=== PATIENT | male | born 1955 | race Caucasian/White ===

== ENCOUNTER → 2017-05-01 | Outpatient (CLI) | payer OTHER, BC ==
[2016-07-25 06:10] VITALS: BP 148/88
[~2017-05-01] MED LIST: ASPIRIN E.C. 8181 MG PO; CIPRO250 M1 PO; CRESTOR20 MG PO; FISH OIL 1,0001 EAC1 PO; FLOMAX 0.40.4 MG/CAP PO; LOPRESSOR 550 MG/TAB PO; PERCOCET 325 MG1 TA2 PO; PHENERGAN 25 TA25 MG PO; ZOFRAN ODT8 M1 PO
== END ==
LOC: RAD 04-28 13:00
DX: I65.23 Occlusion and stenosis of bilateral carotid arteries (principal)

== ENCOUNTER 2018-07-30 08:30 | Outpatient (RCR) | payer OTHER, BC ==
[2016-07-25 06:10] VITALS: BP 148/88
== END 2018-08-19 | disposition home or self-care (01) ==
LOC: PT
DX: M25.561 Pain in right knee (principal); G89.29 Other chronic pain

== ENCOUNTER → 2019-09-08 | Outpatient (CLI) | payer OTHER, BC ==
[2016-07-25 06:10] VITALS: BP 148/88
== END ==
LOC: RAD 15:27
DX: R06.02 Shortness of breath (principal)

== ENCOUNTER 2019-11-18 08:30 | Outpatient (RCR) | payer OTHER, BC ==
[2016-07-25 06:10] VITALS: BP 148/88
== END 2019-11-24 | disposition still patient (30) ==
LOC: PT
DX: S16.1XXA Strain of muscle, fascia and tendon at neck level, initial encounter (principal); M77.11 Lateral epicondylitis, right elbow

== ENCOUNTER 2020-02-23 21:37 | Emergency (ER) | payer OTHER, BC ==
[2020-02-23] MEDS ORDERED: NEURONTIN300 MG/CAP PO (22:06)
[2020-02-23] MEDS ORDERED: GABAPENTIN TAB600 MG PO (22:06)
[2020-02-23] MEDS ORDERED: SOOLANTRA 1% TP (22:07)
[2020-02-23 23:06] LABS: EOS # 0.1 (0.04-0.40); EOS % 0.8 % (0.0-4.0); HEMATOCRIT 43.1 % (42.0-52.0); HEMOGLOBIN 14.4 g/dL (13.5-18.0); LYMPH# 1.9 (1.50-4.00); MEAN CELL VOLUME 92 fl (78-100); MEAN CORPUSCULAR HEMOGLOBIN 31 pg (27-31); MEAN CORPUSCULAR HGB CONC 33 g/dL (33-37); MEAN PLATELET VOLUME 9.9 fl (7.4-10.4); PLATELET COUNT 250 K/mm3 (130-400); RED BLOOD COUNT 4.71 M/mm3 (4.20-5.60); RED CELL DISTRIBUTION WIDTH 12.1 % (11.5-14.5); WHITE BLOOD COUNT 13.1 K/mm3 (4.8-10.8)
[2020-02-23 23:17] LABS: ALBUMIN 4.1 g/dL (3.4-4.8); POTASSIUM 3.6 mmol/L (3.5-5.1)
[2020-02-23 23:18] LABS: CALCIUM 9.6 mg/dL (8.3-10.5)
[2020-02-23 23:19] LABS: TOTAL PROTEIN 7.2 g/dL (6.2-8.1)
[2020-02-23 23:21] LABS: TOTAL BILIRUBIN 1.5 mg/dL (0.2-1.2)
[2020-02-23 23:22] LABS: URINE APPEARANCE CLOUDY; URINE BILIRUBIN NEGATIVE (NEGATIVE); URINE BLOOD 250 ery/uL (NEGATIVE); URINE COLOR YELLOW; URINE GLUCOSE NEGATIVE (NEGATIVE); URINE KETONE NEGATIVE (NEGATIVE); URINE LEUKOCYTE ESTERASE TRACE (NEGATIVE); URINE NITRATE NEGATIVE (NEGATIVE); URINE PROTEIN(semi-quant) TRACE mg/dL (NEGATIVE); URINE UROBILINOGEN NORMAL (NORMAL)
[2020-02-24 07:04] VITALS: BP 156/84
== END 2020-02-24 07:04 | disposition home or self-care (01) ==
LOC: ED 21:37
PROVIDERS: Nurse Practitioner Family
DX: N13.2 Hydronephrosis with renal and ureteral calculous obstruction (principal); E11.9 Type 2 diabetes mellitus without complications; I10 Essential (primary) hypertension; Z87.442 Personal history of urinary calculi; Z79.82 Long term (current) use of aspirin
CPT/HCPCS: J0744; J1885; J2405; J7120; Q9967

== ENCOUNTER 2022-07-21 07:58 | Outpatient (RCR) | payer MEDICARE, OTHER ==
[~2022-07-21 07:58] MED LIST changes: +GABAPENTIN TAB600 MG PO; +NEURONTIN300 MG/CAP PO; +SOOLANTRA 1% TP
== END 2022-08-18 | disposition home or self-care (01) ==
LOC: PT
DX: M25.512 Pain in left shoulder (principal)

== ENCOUNTER 2022-08-20 07:59 | Outpatient (RCR) | payer MEDICARE, OTHER | END 2022-09-17 | disposition home or self-care (01) | LOC: PT | DX: M25.512 Pain in left shoulder (principal) ==

== ENCOUNTER 2023-01-17 17:00 | Observation (INO) | payer MEDICARE ==
[~2023-01-17] VITALS: Ht 175.3 cm; Wt 83.0 kg
[2023-01-17 18:39] LABS: BASO # 0.03 K/mm3 (0.02-0.10); EOS # 0.19 K/mm3 (0.04-0.40); EOS % 1.3 % (0.0-4.0); HEMATOCRIT 42.9 % (42.0-52.0); HEMOGLOBIN 14.4 g/dL (13.5-18.0); LYMPH# 3.86 K/mm3 (1.50-4.00); MEAN CELL VOLUME 93 fl (78-100); MEAN CORPUSCULAR HEMOGLOBIN 31 pg (27-31); MEAN CORPUSCULAR HGB CONC 34 g/dL (33-37); MEAN PLATELET VOLUME 10.3 fl (7.4-10.4); MONO # 0.91 K/mm3 (0.20-0.80); NEU # 9.94 K/mm3 (1.40-6.50); PLATELET COUNT 244 K/mm3 (130-400); RED CELL DISTRIBUTION WIDTH 11.7 % (11.5-14.5)
[2023-01-17 18:42] LABS: ALBUMIN 4.2 g/dL (3.4-4.8); POTASSIUM 4.6 mmol/L (3.5-5.1)
[2023-01-17 18:44] LABS: CALCIUM 9.8 mg/dL (8.3-10.5)
[2023-01-17 18:47] LABS: TOTAL BILIRUBIN 1.6 mg/dL (0.2-1.2)
[2023-01-17 18:51] LABS: URINE APPEARANCE CLOUDY; URINE BILIRUBIN NEGATIVE (NEGATIVE); URINE BLOOD 250 ery/uL (NEGATIVE); URINE COLOR YELLOW; URINE GLUCOSE NEGATIVE (NEGATIVE); URINE KETONE NEGATIVE (NEGATIVE); URINE LEUKOCYTE ESTERASE TRACE (NEGATIVE); URINE NITRATE NEGATIVE (NEGATIVE); URINE PROTEIN(semi-quant) 2+ (NEGATIVE); URINE UROBILINOGEN NORMAL (NORMAL)
[2023-01-17 18:52] LABS: URINE MUCUS PRESENT (NOT PRESENT)
[2023-01-17] MEDS ORDERED: GABAPENTIN TAB600 MG PO (21:08)
[2023-01-17] MEDS ORDERED: GABAPENTIN800 MG (21:09)
[2023-01-17] MEDS ORDERED: LOSARTAN POTASS25 MG PO (21:10)
[2023-01-17] MEDS ORDERED: TOPROL XL100 MG PO (21:10)
[2023-01-17] MEDS ORDERED: GLUCOPHAGE PO ×2 (21:11→21:12)
[2023-01-17 22:30] VITALS: BP 131/74
[2023-01-18 05:56] VITALS: BP 153/79
[2023-01-18 07:59] LABS: BASO # 0.03 K/mm3 (0.02-0.10); EOS # 0.11 K/mm3 (0.04-0.40); EOS % 0.7 % (0.0-4.0); HEMATOCRIT 38.9 % (42.0-52.0); HEMOGLOBIN 13.4 g/dL (13.5-18.0); LYMPH# 3.93 K/mm3 (1.50-4.00); MEAN CELL VOLUME 93 fl (78-100); MEAN CORPUSCULAR HEMOGLOBIN 32 pg (27-31); MEAN CORPUSCULAR HGB CONC 34 g/dL (33-37); MONO # 1.09 K/mm3 (0.20-0.80); NEU # 9.52 K/mm3 (1.40-6.50); PLATELET COUNT 224 K/mm3 (130-400); RED CELL DISTRIBUTION WIDTH 11.7 % (11.5-14.5); WHITE BLOOD COUNT 14.7 K/mm3 (4.8-10.8)
[2023-01-18 08:08] LABS: ALBUMIN 3.7 g/dL (3.4-4.8); POTASSIUM 4.1 mmol/L (3.5-5.1)
[2023-01-18 08:11] LABS: TOTAL PROTEIN 6.2 g/dL (6.2-8.1)
[2023-01-18 08:12] LABS: TOTAL BILIRUBIN 2.1 mg/dL (0.2-1.2)
[2023-01-18 08:26] LABS: URINE APPEARANCE CLEAR; URINE BILIRUBIN NEGATIVE (NEGATIVE); URINE BLOOD 50 ery/uL (NEGATIVE); URINE COLOR DARK YELLOW; URINE GLUCOSE NEGATIVE (NEGATIVE); URINE KETONE NEGATIVE (NEGATIVE); URINE LEUKOCYTE ESTERASE NEGATIVE (NEGATIVE); URINE NITRATE NEGATIVE (NEGATIVE); URINE PROTEIN(semi-quant) 1+ (NEGATIVE); URINE UROBILINOGEN NORMAL (NORMAL)
[2023-01-18 10:10] VITALS: BP 120/64
[2023-01-18] MEDS ORDERED: CEFDINIR300 MG PO (13:53)
[2023-01-18] MEDS ORDERED: TOPCARE OMEPRAZ20 MG PO (13:54)
[2023-01-18 14:12] VITALS: BP 122/66
== END 2023-01-18 14:22 | disposition home or self-care (01) ==
LOC: ED 17:00 → MED/SURG 22:43
PROVIDERS: ADMIT Family Medicine
DX: N20.2 Calculus of kidney with calculus of ureter (principal); K80.20 Calculus of gallbladder without cholecystitis without obstruction; K21.9 Gastro-esophageal reflux disease without esophagitis; E78.5 Hyperlipidemia, unspecified; E11.42 Type 2 diabetes mellitus with diabetic polyneuropathy; Z79.84 Long term (current) use of oral hypoglycemic drugs; Z79.899 Other long term (current) drug therapy; Z95.1 Presence of aortocoronary bypass graft; Z95.5 Presence of coronary angioplasty implant and graft; Z95.2 Presence of prosthetic heart valve
CPT/HCPCS: C9113; G0378; J0696; J2270; J3480; J7030; Q9967

== ENCOUNTER → 2023-11-24 | Outpatient (CLI) | payer MEDICARE ==
[~2023-11-24] MED LIST changes: +CEFDINIR300 MG PO; +GABAPENTIN800 MG; +GLUCOPHAGE PO; +LOSARTAN POTASS25 MG PO; +TOPCARE OMEPRAZ20 MG PO; +TOPROL XL100 MG PO
== END ==
LOC: AMSURD 15:26
DX: I25.10 Atherosclerotic heart disease of native coronary artery without angina pectoris (principal)